=== PATIENT | female | born 1975 | race Two or more races ===

== ENCOUNTER 2024-05-30 13:51 | Outpatient (AMB) | payer MEDICAID, SELFPAY ==
--- NOTE | 2024-05-30 14:14 | ORTHONT_ITS ---
Vital signs 05/30/24 14:18 Height 1.6 m Height Method Stated Weight 79.407 kg Weight Measurement Method Standing Scale BMI 31.0 BP 113/76 Blood Pressure Source Automatic Cuff Blood Pressure Location Left Upper Arm Position Sitting Respiration 18 Pulse 72 Pulse Source Monitor Temp 97.8 F Temp Source Temporal Artery Scan Pulse Oximetry (%) 96 Oxygen Delivery Method Room Air Med/Allergies Allergies & Medications Allergies Penicillins Allergy (Verified 05/30/24 14:22) Sulfa (Sulfonamide Antibiotics) Allergy (Verified 05/30/24 14:22) Medication Reconciliation meloxicam 7.5 mg tablet 7.5 mg PO QDAY #45 tabs 05/30/24 [Rx] Exam Exam Patient is in no acute distress and is cooperative with the examination today. Breathing is nonlabored. Patient has a normal mood and affect. Bilateral extremities were evaluated and demonstrates sensation intact to light touch. Palpable pedal pulses are present. No significant edema is present. Bilateral hips were examined. The patient has no pain with log roll of the hips. Internal rotation to 30 degrees and external rotation to 30 degrees is painless. Negative FADIR. Right knee was examined today. The right knee is in reasonable alignment. Range of motion from 0-120 degrees. Knee is stable to varus and valgus as well as AP translation with <5mm. Patient has a negative McMurrays. There is no pain with patellofemoral compression and no crepitus noted. The knee is nontender to palpation. Left knee was examined today. The left knee is in varus alignment. Range of motion from 0-115 degrees. Knee is stable to varus and valgus as well as AP translation with <5mm. Patient has a negative McMurrays. There is no pain with patellofemoral compression and no crepitus noted. The knee is tender to palpation medially. An MRI demonstrates a horizontal tear of the posterior horn the medial meniscus as well as an anterior horn of the lateral meniscus tear Assessment and Plan Problem List (1) Pain in left knee: Status: Acute Plan: Patient is a pleasant 49-year-old female with a left knee pain and a degenerative meniscal tear of the left side. She has not had any injections we recommend an injection at the next visit. We will also get new weightbearing x- rays. I also sent her prescription for meloxicam. 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[place] Level 4 ([id number]) MA Intake Visit Data Collection New Patient or Established: New Patient (never been to [facility]) Reason for Visit:: LEFT KNEE MENISCUS TEAR Seen by Clinical Staff ONLY (RN/MA): No Communication Skills Instructor Required: No PCP or OBGYN visit in last 3 months: Yes Hx Now: No Do You Feel Safe at Home: Yes Authorities Contacted: N/A Questionairres Past Medical History Past Medical History Have you ever been diagnosed with any of the following: Respiratory Problems Smoking: No Smoking Exposure: No Subjective Visit Visit for: new patient and knee (LEFT) Immunization / Flu Flu Vaccine in the Last 12 Months: No Flu Vaccine Exclusion Criteria: Refused by Patient History of Present Illness Chief complaint: left knee pain Katie is a pleasant 49-year-old female who presents today for evaluation of her left knee. She was found to have a meniscal tear and was referred here. Has not had any conservative treatment. She reports the pain is improving since the initial injury approximately 5 months ago. Personal History Occupation: [employer] Pain Pain level (0-10): 7 Pain duration: WITH MOVEMENT Pain location: posterior Pain quality: sharp, dull and aching Pain timing: night, increases with activity and stairs Associated signs & symptoms: numbness, weakness and stiffness Ambulatory data Ambulatory device: none Treatments Improvement with previous injections: No Improvement with PT: No Improvement with NSAIDS: no Review of Systems Review of Systems: All systems negative unless otherwise noted in HPI.
[2024-05-30 14:18] VITALS: BP 113/76; PULSE 72; RESP 18; TEMP 36.6; O2SAT 96; BMI 31.0
--- NOTE | 2024-05-30 14:24 | XR_ITS ---
Examination: Bilateral knees single view PA lateral axial left knee 3 views Technique: Bilateral AP knees standing single view Standing PA knees flexion, standing lateral knee Axial knee 3 views total 4 views Exam date and time: May 30, 2024 1442 hrs. Indications: Left knee pain paresthesias 3 months Findings: Mild right knee tricompartment osteoarthritis No fractures Moderate osteopenia Impression: Mild right knee tricompartment osteoarthritis
== END 2024-05-30 14:29 | disposition home or self-care (01) ==
LOC: HODSRG 13:51
PROVIDERS: PCP Physician Assistant; Referring Provider Physician Assistant; Supervising Provider Orthopaedic Surgery Adult Reconstructive Orthopaedic Surgery; Visit Provider Orthopaedic Surgery Adult Reconstructive Orthopaedic Surgery
DX: M25.562 Pain in left knee (principal); S83.242A Other tear of medial meniscus, current injury, left knee, initial encounter; X58.XXXA Exposure to other specified factors, initial encounter; M17.11 Unilateral primary osteoarthritis, right knee
CPT/HCPCS: 73564; 99204; G0463

== ENCOUNTER 2024-07-26 14:35 | Outpatient (AMB) | payer MEDICAID, SELFPAY ==
[2024-07-26 14:47] VITALS: BP 113/76; PULSE 75; RESP 18; TEMP 36.6; O2SAT 96; BMI 31.0
--- NOTE | 2024-07-26 14:47 | PD.ORTHCLVIS ---
Vital signs 07/26/24 14:47 Height 1.6 m Height Method Stated Weight 79.407 kg Weight Measurement Method Standing Scale BMI 31.0 BP 113/76 Blood Pressure Source Automatic Cuff Blood Pressure Location Right Upper Arm Position Sitting Respiration 18 Pulse 75 Pulse Source Monitor Temp 97.9 F Temp Source Temporal Artery Scan Pulse Oximetry (%) 96 Oxygen Delivery Method Room Air Med/Allergies Allergies & Medications Allergies Penicillins Allergy (Verified 07/26/24 14:48) Sulfa (Sulfonamide Antibiotics) Allergy (Verified 07/26/24 14:48) Medication Reconciliation meloxicam 7.5 mg tablet 7.5 mg PO QDAY #45 tabs 05/30/24 [Rx Confirmed 07/26/24] meloxicam 7.5 mg tablet 7.5 mg PO QDAY #45 tabs 07/26/24 [Rx] Exam Exam Patient is in no acute distress and is cooperative with the examination today. Breathing is nonlabored. Patient has a normal mood and affect. Bilateral extremities were evaluated and demonstrates sensation intact to light touch. Palpable pedal pulses are present. No significant edema is present. Bilateral hips were examined. The patient has no pain with log roll of the hips. Internal rotation to 30 degrees and external rotation to 30 degrees is painless. Negative FADIR. Right knee was examined today. The right knee is in reasonable alignment. Range of motion from 0-120 degrees. Knee is stable to varus and valgus as well as AP translation with <5mm. Patient has a negative McMurrays. There is no pain with patellofemoral compression and no crepitus noted. The knee is nontender to palpation. Left knee was examined today. The left knee is in varus alignment. Range of motion from 0-115 degrees. Knee is stable to varus and valgus as well as AP translation with <5mm. Patient has a negative McMurrays. There is no pain with patellofemoral compression and no crepitus noted. The knee is tender to palpation medially. An MRI demonstrates a horizontal tear of the posterior horn the medial meniscus as well as an anterior horn of the lateral meniscus tear X-rays demonstrate history of joint spaces Assessment and Plan Problem List (1) Pain in left knee: Status: Acute Plan: Patient is a pleasant 49-year-old female with a left knee pain and a degenerative meniscal tear of the left side. She would like to continue with conservative treatment for now. She did not pickle cutter her prescription for anti-inflammatories and we have resent 1. She should also do a home exercise program that we provided with no one. She can call us if the pain persists Office Procedures GNS Level of Care Nursing/Assessment Patient Status: Established Patient Nursing Assessment/Reassesment: Medication Reconciliation, Update PMH in EMR and Vital Signs Coordination of Care: Complex Care and Chronic Disease 1-5, Education Complex Pt/Fam, Consent,records obtained, informed consent, Results/Orders obtained and Staff clarify orders Established Patient Charge Established Patient Point Assignment: 95 Established Patient Point Charge: EP Level 3 (80-115) MA Intake Visit Data Collection New Patient or Established: Established Patient (seen at [facility] within 3 years) Reason for Visit:: F/U XRAYS & POSSIBLE KNEE INJECTIONS Seen by Clinical Staff ONLY (RN/MA): No Verbal consent obtained for Telemed visit?: No 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 She was found to have a meniscal tear and was referred here. Has not had any conservative treatment. She reports the pain is improving since the initial injury. She does not want an injection today as the pain is improving Personal History Occupation: [employer] Pain Pain level (0-10): 0 Pain duration: WITH MOVEMENT Pain location: posterior Pain quality: aching Pain timing: night, increases with activity and stairs Associated signs & symptoms: none Ambulatory data Ambulatory device: none Treatments Improvement with previous injections: No Improvement with PT: No Improvement with NSAIDS: no Review of Systems Review of Systems: All systems negative unless otherwise noted in HPI.
== END 2024-07-26 15:00 | disposition home or self-care (01) ==
LOC: HODSRG 14:35
PROVIDERS: PCP Physician Assistant; Referring Provider Physician Assistant; Supervising Provider Orthopaedic Surgery Adult Reconstructive Orthopaedic Surgery; Visit Provider Orthopaedic Surgery Adult Reconstructive Orthopaedic Surgery
DX: M25.562 Pain in left knee (principal); S83.282D Other tear of lateral meniscus, current injury, left knee, subsequent encounter; X58.XXXD Exposure to other specified factors, subsequent encounter
CPT/HCPCS: 99213; G0463